=== PATIENT | female | born 1965 | race Caucasian/White ===

== ENCOUNTER 2019-09-07 12:53 | Emergency (ER) | payer MEDICAID ==
[~2019-09-07] VITALS: Ht 154.9 cm; Wt 83.0 kg
[2019-09-07 13:05] VITALS: BP 126/78
== END 2019-09-07 17:38 | disposition left against medical advice (07) ==
LOC: ER 12:54
DX: R05 Cough (principal); Z53.21 Procedure and treatment not carried out due to patient leaving prior to being seen by health care provider

== ENCOUNTER 2025-04-05 08:45 | Emergency (ER) | payer MEDICAID ==
[~2025-04-05] VITALS: Ht 162.6 cm; Wt 85.6 kg
[2025-04-05 08:57] VITALS: BP 125/80; PULSE 81; RESP 16; TEMP 98; O2SAT 94
--- NOTE | 2025-04-05 09:05 | Physician Documentation ---
History of Present Illness ~ General Chief Complaint: Multiple Medical Complaints Stated Complaint: EYE SWELLING Time Seen by MD: 09:04 History of Present Illness Initial Comments 59-year-old female presents accompanied by her due to concerns for right eye pain. She denies chills or fevers, dental pain, ear pain. She was found to have mild erythema of the right eyelid. She is also found to have recent superficial sheriff of the left arm, which she is treating with burn cream. Denies fevers or chills, denies chest pain or shortness of breath. Unsure when last tetanus was. Medication Reconciliation Allergies: Coded Allergies: No Known Allergies (Unverified , 09/07/19) Scheduled Ciprofloxacin Hcl Ophth* (Ciloxan 0.35 Ophth Drops*), 1 DROP RIGHTEYE Q6H Silver Sulfadiazine (Silvadene), 1 APPLIC TOP DAILY Review of Systems ROS As stated above in the HPI, otherwise all systems are reviewed and negative. Physical Exam Physical Exam Vital Signs: Temperature: 98.0, Source: Oral, Heart Rate: 81, Respiratory Rate: 16, BP: 125/80, Pulse Oximetry: 94, Weight: 85.600 Oxygen Flow Rate: 0 Physical Exam General: Alert, no apparent distress. HEENT: PERRL, EOMI, right eye mildly injected but no discharge from eye noted. Mild erythema without abscess right eyelid. Neck: Full range of motion. Respiratory: Lungs clear, no respiratory distress. Chest: No accessory muscle use. Cardiovascular: Regular rate and rhythm, no murmurs. Gastrointestinal: Soft, nontender, nondistended. Bowels sounds present. Extremities: Normal range of motion, no deformity. Neurologic: Oriented x4. Psychiatric: Normal mood and affect. Skin: Normal color, warm and dry. No edema, no ecchymosis. Blistered sheriff covering approx 0.5% surface area left arm. Antibiotic ointment intact. Progress Results/Orders Results/Orders Completed Orders - WILL FOLEY NP Tetanus/Pertuss/Diph Acell/Pf (Boostrix (04/05/25 09:40) Vital Signs 04/05/25 08:57 Temp 98.0 Pulse 81 Resp 16 B/P (MAP) 125/80 Pulse Ox 94 O2 Flow Rate 0 Medical Decision Making Differential Diagnosis This is a well-appearing 59-year-old female who comes in with report of pain to the right eyelid. On exam, she was found to have mild erythema to the right eyelid. Her EOMs remain intact. She has had no fevers or chills. She will be treated with antibiotic eyedrops and instructions to apply warm moist packs to the right eyelid 4 times a day. She is instructed to follow up with the primary care in her eye doctor. The patient does also report incidentally that she burned her left arm and has been cream intact to this area. Because she was unsure when her last tetanus was, this was updated. Prescription burn cream sent to her pharmacy. Departure Time of Disposition: 09:40 Disposition: HOME / SELF CARE / HOMELESS Impression: Primary Impression: Conjunctivitis Qualified Codes: H10.31 - Unspecified acute conjunctivitis, right eye Additional Impression: Superficial burn of left upper arm Discharge Instructions: Bacterial Conjunctivitis, Adult, Burn Care, Adult Additional Instructions: Tetanus updated today due to sheriff left arm. Keep the left arm sheriff clean, dry, and covered with burn cream-RX to pharmacy. See primary care for recheck within a week. Warm moist compresses right eyelid four times daily x 15 minutes. See an eye doctor soon. One suggestion is to call [facility] for recheck soon. Return if worse. Referrals: NO PRIMARY CARE PROVIDER (PCP) Prescriptions Silver Sulfadiazine (Silvadene) 1 % Cream..g. 1 APPLIC TOP DAILY for 7 Days, #50 GM 0 Refills apply to affected area(s) Prov: WILL FOLEY NP 04/05/25 Ciprofloxacin Hcl Ophth* (Ciloxan 0.35 Ophth Drops*) 2.5 Ml Bottle 1 DROP RIGHTEYE Q6H for 7 Days, #5 ML Prov: WILL FOLYE NP 04/05/25 Education Educated: Patient, Family Educated regarding: diagnosis, treatment, prognosis, need for follow up Signature Scribe Signature: no scribe Attestation: The note accurately reflects work and decisions made by me.Will Lui NP 04/05/25 09:48 WILL FOLEY NP April 05, 2025 09:05
[2025-04-05] MEDS ORDERED: CIPR2.5D21 RIGHTEYE (09:41)
[2025-04-05] MEDS ORDERED: SILV20CR13 TOP (09:43)
[2025-04-05] MEDS: TETanus/Pertussis (Acell)/Diphther VAC/PF (Tdap-Adult) 0.5ml syringe IMVAC ONE (10:02)
== END 2025-04-05 10:06 | disposition home or self-care (01) ==
LOC: ER 08:46
DX: H10.9 Unspecified conjunctivitis (principal); T22.00XA Burn of unspecified degree of shoulder and upper limb, except wrist and hand, unspecified site, initial encounter; X08.8XXA Exposure to other specified smoke, fire and flames, initial encounter; Y93.89 Activity, other specified; Y92.89 Other specified places as the place of occurrence of the external cause; Y99.8 Other external cause status
CPT/HCPCS: 90471; 90715; 99283